=== PATIENT | female | born 1945 | race Caucasian/White ===

== ENCOUNTER 2024-10-27 07:38 | Outpatient (RCR) | payer MEDICARE, SELFPAY | END 2024-10-27 23:59 | disposition home or self-care (01) | LOC: RPT 07:38 | PROVIDERS: ATTENDING PHYSICIAN Urology; FAMILY PHYSICIAN Internal Medicine | DX: M62.89 Other specified disorders of muscle (principal); Z73.6 Limitation of activities due to disability; L90.0 Lichen sclerosus et atrophicus | CPT/HCPCS: 97161; 97530 ==

== ENCOUNTER 2024-12-01 15:10 | Outpatient (RCR) | payer MEDICARE, SELFPAY | END 2024-12-01 23:59 | disposition home or self-care (01) | LOC: RPT 15:10 | PROVIDERS: ATTENDING PHYSICIAN Urology; FAMILY PHYSICIAN Internal Medicine | DX: M62.89 Other specified disorders of muscle (principal); Z73.6 Limitation of activities due to disability; L90.0 Lichen sclerosus et atrophicus | CPT/HCPCS: 97110; 97140 ==

== ENCOUNTER 2024-12-22 15:35 | Outpatient (RCR) | payer MEDICARE, SELFPAY | END 2024-12-22 23:59 | disposition home or self-care (01) | LOC: RPT 15:35 | PROVIDERS: ATTENDING PHYSICIAN Urology; FAMILY PHYSICIAN Internal Medicine | DX: M62.89 Other specified disorders of muscle (principal); Z73.6 Limitation of activities due to disability; L90.0 Lichen sclerosus et atrophicus | CPT/HCPCS: 97110; 97140 ==

== ENCOUNTER 2025-01-12 10:31 | Outpatient (RCR) | payer MEDICARE, SELFPAY | END 2025-01-12 23:59 | disposition home or self-care (01) | LOC: RPT 10:31 | PROVIDERS: ATTENDING PHYSICIAN Urology; FAMILY PHYSICIAN Internal Medicine | DX: M62.89 Other specified disorders of muscle (principal); Z73.6 Limitation of activities due to disability; L90.0 Lichen sclerosus et atrophicus | CPT/HCPCS: 97110; 97112; 97140 ==

== ENCOUNTER 2025-03-08 15:08 | Outpatient (RCR) | payer MEDICARE, SELFPAY | END 2025-03-09 05:57 | disposition home or self-care (01) | LOC: RPT 15:08 | PROVIDERS: ATTENDING PHYSICIAN Urology; FAMILY PHYSICIAN Internal Medicine | DX: M62.89 Other specified disorders of muscle (principal); Z73.6 Limitation of activities due to disability; L90.0 Lichen sclerosus et atrophicus | CPT/HCPCS: 97110; 97140 ==